=== PATIENT | male | born 1960 | race Caucasian/White ===

== ENCOUNTER 2020-08-29 16:00 | Outpatient (REF) | payer OTHER, SELFPAY | END 2020-08-29 16:01 | disposition home or self-care (01) | LOC: HO.LAB 16:00 | PROVIDERS: PCP Internal Medicine; Visit Provider Internal Medicine | DX: Z20.828 Contact with and (suspected) exposure to other viral communicable diseases (principal) | CPT/HCPCS: C9803; U0003 ==

== ENCOUNTER 2020-11-28 14:08 | Outpatient (REF) | payer OTHER, SELFPAY | END 2020-11-28 14:09 | disposition home or self-care (01) | LOC: HO.LAB 14:08 | PROVIDERS: Visit Provider Internal Medicine | DX: Z20.822 Contact with and (suspected) exposure to COVID-19 (principal) | CPT/HCPCS: 36415; C9803; U0003; U0005 ==

== ENCOUNTER 2021-08-10 13:20 | Outpatient (REF) | payer OTHER, SELFPAY | END 2021-08-10 13:21 | disposition home or self-care (01) | LOC: HO.LAB 13:20 | PROVIDERS: Visit Provider Internal Medicine | DX: Z20.822 Contact with and (suspected) exposure to COVID-19 (principal) | CPT/HCPCS: C9803; U0003; U0005 ==